=== PATIENT | male | born 1935 | race Caucasian/White ===

== ENCOUNTER 2017-11-14 08:33 | Outpatient (CLI) | payer MEDICARE, BC ==
--- NOTE | 2017-11-14 09:40 | RAD ---
CHEST 2 VIEWS: Date: 11/14/17 HISTORY: Dyspnea. COMPARISON: Chest radiograph dated 10/18/16. FINDINGS: There is pleural thickening bilaterally, unchanged. Heart size upper limits of normal. No pneumothora x. There is mild increased right perispinal and left perispinal density. IMPRESSION: Similar examination with pleural thickening bilaterally, as well as mild increased perispinal soft ti ssue density may be sequelae of aortic ectasia versus hiatal hernia. POS: C
== END 2017-11-14 08:34 | disposition home or self-care (01) ==
LOC: RAD 08:33
PROVIDERS: ATTEND Internal Medicine Critical Care Medicine
DX: R06.00 Dyspnea, unspecified (principal); J98.4 Other disorders of lung; R91.8 Other nonspecific abnormal finding of lung field
CPT/HCPCS: 71046